=== PATIENT | female | born 1985 | race Caucasian/White ===

== ENCOUNTER 2017-12-06 15:11 | Emergency (ER) | payer MEDICAID ==
[~2017-12-06] VITALS: Ht 177.8 cm; Wt 97.3 kg
[2017-12-06 15:32] VITALS: BP 128/79
[2017-12-06] MEDS ORDERED: DEXAMETHASONE 4 MG TABLET ONE (15:51)
[2017-12-06] MEDS ORDERED: DEXAMETHASONE 4 MG/ML, 1ML PO ONE (16:00)
== END 2017-12-06 16:30 | disposition home or self-care (01) ==
LOC: ED 16:05
DX: J02.8 Acute pharyngitis due to other specified organisms (principal); B97.89 Other viral agents as the cause of diseases classified elsewhere
CPT/HCPCS: 70360; 87081; 87880; 99285; J1100